=== PATIENT | female | born 1980 ===

== ENCOUNTER 2020-07-08 09:30 | Inpatient (IN) | payer OTHER ==
[~2020-07-08] VITALS: Ht 154.9 cm; Wt 68.0 kg
[2020-07-16] MEDS ORDERED: Tylenol#3 PO (08:57)
== END 2020-07-16 12:16 | disposition home or self-care (01) | DRG 743 ==
LOC: OB/GYN 07-15 07:40 → O/R 07-15 07:40 → OB/GYN 07-15 09:30 → O/R 07-15 09:30 → OB/GYN 07-15 10:00
PROVIDERS: ADMIT Obstetrics & Gynecology; ATTEND Obstetrics & Gynecology
PROC: 0UQF7ZZ Repair Cul-de-sac, Via Natural or Artificial Opening (ICD-10-PCS; 2020-07-15)
PROC: 0USG7ZZ Reposition Vagina, Via Natural or Artificial Opening (ICD-10-PCS; 2020-07-15)
PROC: 0TJB8ZZ Inspection of Bladder, Via Natural or Artificial Opening Endoscopic (ICD-10-PCS; 2020-07-15)
PROC: 0UT97ZZ Resection of Uterus, Via Natural or Artificial Opening (ICD-10-PCS; principal; 2020-07-15 10:00)
DX: N72 Inflammatory disease of cervix uteri (principal); D25.1 Intramural leiomyoma of uterus; N81.11 Cystocele, midline